=== PATIENT | female | born 1955 | race Caucasian/White ===

== ENCOUNTER 2021-07-18 10:29 | Emergency (ER) | payer MEDICARE ==
[2021-07-18 12:51] LABS: CORONAVIRUS 2019 SARS-COV-2 NEGATIVE (NEGATIVE); INFLUENZA A NAA NEGATIVE (NEGATIVE)
[2021-07-18 14:41] LABS: BUN/CREAT RATIO (CALC) 19.4 RATIO; CREATININE 0.62 mg/dL (0.51-0.95); POTASSIUM 3.7 mmol/L (3.5-5.1)
[2021-07-18 15:10] LABS: EOSINOPHIL 2.4 % (0-7); HCT 40.1 % (37.0-47.0); HGB 13.3 g/dl (12.5-16.0); MCH 30.3 pg (25.0-31.0); MCHC 33.2 g/dL (32.0-36.0); MCV 91.3 fL (78.0-100.0); MONOCYTE 11.4 % (0-12); MPV 10.3 fL (6.0-9.5); NEUTROPHIL 54.9 % (41-80); NRBC 0; PLT 257 K/uL (150-400); RBC 4.39 M/uL (4.20-5.40); RDW 14.7 % (11.5-14.0); WBC 10.6 K/uL (4.0-10.5)
[2021-07-18] MEDS ORDERED: AZITHROMYCIN250 MG PO (15:37)
== END 2021-07-18 16:05 | disposition home or self-care (01) ==
LOC: FER 10:29
PROVIDERS: Internal Medicine; Nurse Practitioner Family
DX: J18.9 Pneumonia, unspecified organism (principal); J32.9 Chronic sinusitis, unspecified; I10 Essential (primary) hypertension; J45.909 Unspecified asthma, uncomplicated; Z20.822 Contact with and (suspected) exposure to COVID-19; Z88.0 Allergy status to penicillin; Z88.7 Allergy status to serum and vaccine; Z87.891 Personal history of nicotine dependence
CPT/HCPCS: 36415; 71045; 80048; 85025; 87880; 94640; 94664; U0002